=== PATIENT | female | born 1985 | race Two or more races ===

== ENCOUNTER 2017-11-25 11:26 | Inpatient (IN) | payer OTHER ==
[~2017-11-25] VITALS: Ht 170.2 cm; Wt 56.7 kg
--- NOTE | 2017-11-25 12:11 | NUR ---
BIB [facility] c/o nausea and vomiting associated with eating big meal last night. nad noted. pt aao x4, amb with steady gait. rr even and unlabored. pending md pineda. vss.
[2017-11-25 13:23] LABS: EOSINOPHILS % (AUTO) 0.1 % (0.0-6.0); HEMATOCRIT 39 % (33-45); HEMOGLOBIN 13.8 g/dL (11.5-14.8); LYMPHOCYTES # (AUTO) 0.4 /CMM (0.8-4.8); LYMPHOCYTES % (AUTO) 2.4 % (20.0-44.0); MEAN CORPUSCULAR HEMOGLOBIN 30 PG (26.0-33.0); MEAN CORPUSCULAR HGB CONC 36 g/dl (31.0-36.0); MEAN CORPUSCULAR VOLUME 83 fL (82-100); MONOCYTES # (AUTO) 0.4 /CMM (0.1-1.30); MONOCYTES % (AUTO) 2.1 % (2.0-12.0); NEUTROPHILS # (AUTO) 16.2 /CMM (1.8-8.9); NEUTROPHILS % (AUTO) 95.4 % (43.0-81.0); PLATELET COUNT (AUTO) 251 /CMM (150-450); RDW COEFFICIENT OF VARIATION 11.9 (11.5-15.0); RED BLOOD CELL COUNT(AUTO) 4.67 MIL/uL (4.0-5.2)
[2017-11-25] MEDS ORDERED: ONDANSETRON HCL/PF 4 MG/2 ML VIAL ONE (13:24)
[2017-11-25] MEDS ORDERED: MORPHINE SULFATE INJ 4 MG/ML DISP.SYRIN ONE (13:26)
[2017-11-25 13:28] LABS: APPEARANCE,URINE Clear (CLEAR); BILIRUBIN,URINE Negative (NEGATIVE); BLOOD, URINE Negative Ery/uL (NEGATIVE); COLOR,URINE Yellow (YELLOW); KETONES,URINE Trace (NEGATIVE); LEUKOCYTE ESTERASE ,URINE Negative (NEGATIVE); NITRITE, URINE Negative (NEGATIVE); PH,URINE 8.5 (5.0-8.0); PROTEIN,URINE Negative (NEGATIVE); UGLUCOSE Negative (NEGATIVE); UROBILINOGEN,URINE 0.2 EU/dL (0.2)
[2017-11-25 13:29] LABS: BACTERIA,URINE Rare /HPF (None Seen); RBC,URINE NONE SEEN /HPF (0-2); SQUAMOUS EPITHELIAL CELL,UR Few /HPF (None Seen); WBC,URINE NONE SEEN /HPF (0-3)
[2017-11-25] MEDS ORDERED: ONDANSETRON HCL/PF 4 MG/2 ML VIAL IVP ONE (13:30)
[2017-11-25] MEDS ORDERED: IV NS 0.9% 1,000 ML BAG IV ONE (13:30)
[2017-11-25] MEDS ORDERED: MORPHINE SULFATE INJ 2 MG/ML DISP.SYRIN IV ONE (13:30)
[2017-11-25 13:39] LABS: CALCIUM, SERUM 9.1 mg/dL (8.5-10.1); CREATININE 0.7 mg/dL (0.6-1.3); POTASSIUM 3.9 mmol/L (3.5-5.1)
[2017-11-25 13:45] LABS: ALBUMIN 3.2 g/dL (3.4-5.0); BILIRUBIN,DIRECT 0.1 mg/dL (0.0-0.2); BILIRUBIN,TOTAL 0.5 mg/dL (0.2-1.0); TOTAL PROTEIN, SERUM 7.5 g/dL (6.4-8.2)
[2017-11-25] MEDS ORDERED: IOHEXOL-300 100 ML VIAL IV ONE (16:13)
[2017-11-25] MEDS ORDERED: IV NS 0.9% 250 ML IV ONE (16:13)
--- NOTE | 2017-11-25 16:45 | NUR ---
PT TO CT
--- NOTE | 2017-11-25 18:45 | NUR ---
SRINI RN NOTE Received patient from ER at this time via W/C. Pt awake, A/O X4. Verbally responsive. Family at bedside. Augustina GRESHAM made aware that pt admitted to the unit, awaiting for the new orders and will endorse the admission to next shift. V/S BP109/59 T99.0 P90 R19 PA0/10 O2 sat 100% at [facility].
[2017-11-25] MEDS ORDERED: ACETAMINOPHEN 325 MG TABLET PO PRN (19:00)
[2017-11-25] MEDS ORDERED: MORPHINE SULFATE INJ 4 MG/ML DISP.SYRIN IV PRN (19:00)
[2017-11-25] MEDS ORDERED: Z GUARD REMEDY 2 OZ OINT TP PRN (19:00)
[2017-11-25] MEDS ORDERED: ZOLPIDEM TARTRATE 5 MG TABLET PO PRN (19:00)
[2017-11-25] MEDS ORDERED: MAGNESIUM HYDROXIDE 30 ML UDC PO PRN (19:00)
[2017-11-25] MEDS ORDERED: ONDANSETRON HCL/PF 4 MG/2 ML VIAL IVP PRN (19:00)
[2017-11-25] MEDS ORDERED: HYDROCODONE/APAP 5/325MG 1 EACH TABLET PO PRN (19:00)
--- NOTE | 2017-11-25 19:45 | NUR ---
MS UNDERGROUND UTILITY LOCATOR NOTES RECEIVED ON BED A/O X4,BREATHING REGULAR,NOT IN ANY FORM OF DISTRESS,CAME FOR N/V.DX,ENTERITIS.C/O ABDOMINAL PAIN 4/10 ON PAIN SCALE.SALINE LOCK LEFT AC #20 INTACT AND PATENT.SEEN AND EXAMINED BY VAELRIO RICHEY.VISITORS AT BEDSIDE.CALL LIGHT IN REACH,NEEDS ANTICIPATED.
[2017-11-25] MEDS: IV NS 0.9% 1,000 ML IV PRN (19:57)
--- NOTE | 2017-11-25 19:57 | NUR ---
MS RN NOTES STARTED ON NS 1LITER AT 75ML/HR RATE ORDERED.ON CLEAR LIQUID DIET.
[2017-11-25 20:00] VITALS: BP 98/56
--- NOTE | 2017-11-25 21:44 | NUR ---
MS RN NOTES C/O HEADACHE,TYLENOL 650MG PO GIVEN ORDERED.
--- NOTE | 2017-11-25 21:44 | NUR ---
MS RN NOTES C/O INSOMNIA,AMBIEN 5MG PO GIVEN PER PATIENT REQUEST.
[2017-11-25] MEDS ORDERED: PIPERACILLIN /TAZOBACTAM 3.375 G VIAL IV ONE (23:43)
[2017-11-25] MEDS: PIPERACILLIN /TAZOBACTAM 3.375 G in IV D5W 50 ML IV SCH (23:55)
--- NOTE | 2017-11-25 23:55 | NUR ---
MS RN NOTES STARTED ON ZOSYN 3.375 GM IVP ORDERED.
--- NOTE | 2017-11-26 01:00 | NUR ---
MS RN NOTES SOUND ASLEEP,KEPT WARM AND COMFORTABLE.
[2017-11-26] MEDS ORDERED: PIPERACILLIN /TAZOBACTAM 3.375 G VIAL IV ONE (05:30)
[2017-11-26] MEDS: PIPERACILLIN /TAZOBACTAM 3.375 G in IV D5W 50 ML IV SCH ×2 (06:47→12:37)
--- NOTE | 2017-11-26 07:05 | NUR ---
MS RN NOTES PAIN TOLERABLE.TYLENOL EFFECTIVE FOR PAIN MANAGEMENT,ON CLEAR LIQUIDS,NO N/V NOTED.IVF INFUSING WELL ON LEFT AC.CALL LIGHT IN REACH,NEEDS ATTENDED.WILL ENDORSE TO DAY NURSE FOR GERRI.
[2017-11-26 07:21] LABS: BASOPHILS % (AUTO) 0.1 % (0.0-2.0); EOSINOPHILS % (AUTO) 0.2 % (0.0-6.0); HEMATOCRIT 33 % (33-45); HEMOGLOBIN 11.4 g/dL (11.5-14.8); LYMPHOCYTES # (AUTO) 0.9 /CMM (0.8-4.8); LYMPHOCYTES % (AUTO) 8.6 % (20.0-44.0); MEAN CORPUSCULAR HEMOGLOBIN 30 PG (26.0-33.0); MEAN CORPUSCULAR HGB CONC 35 g/dl (31.0-36.0); MEAN CORPUSCULAR VOLUME 86 fL (82-100); MONOCYTES # (AUTO) 0.8 /CMM (0.1-1.30); MONOCYTES % (AUTO) 8.2 % (2.0-12.0); NEUTROPHILS # (AUTO) 8.3 /CMM (1.8-8.9); NEUTROPHILS % (AUTO) 82.9 % (43.0-81.0); PLATELET COUNT (AUTO) 208 /CMM (150-450); RDW COEFFICIENT OF VARIATION 13.3 (11.5-15.0); WHITE BLOOD COUNT (AUTO) 10.1 K/uL (4.3-11.0)
[2017-11-26 07:52] LABS: CALCIUM, SERUM 8.2 mg/dL (8.5-10.1); CREATININE 0.7 mg/dL (0.6-1.3); MAGNESIUM 1.8 mg/dL (1.8-2.4); PHOSPHORUS 3.2 mg/dL (2.5-4.9); POTASSIUM 3.7 mmol/L (3.5-5.1)
[2017-11-26 08:00] VITALS: BP 110/69
--- NOTE | 2017-11-26 08:00 | NUR ---
RN NOTES RECEIVED PATIENT IN THE BLAIR, LYING IN THE BED, PATIENT HAS NO RESPIRATORY DISTRESS, NO C/O PAIN, NO N/V AT THIS TIME. ENCOURAGED TO EXPRESS FEELINGS AND CONCERNS. CALL LIGHT WITHIN TO REACH, NEEDS ATTENDED AND ANTICIPATED, SAFETY PRECAUTION MAINTAINED ALL THE TIME.
[2017-11-26] MEDS: IV NS 0.9% 1,000 ML IV PRN (12:39)
[2017-11-26] MEDS ORDERED: CIPR-262 PO (14:24)
[2017-11-26] MEDS ORDERED: METR500T PO (14:24)
[2017-11-26 16:00] VITALS: BP 100/59
--- NOTE | 2017-11-26 16:55 | NUR ---
DISCHARGE NOTES PATIENT D/C AT THIS TIME GOING HOME. PATIENT MED COMPLIANT, V/S STABLE, NO C/O PAIN AT THIS TIME. MED RECONCILIATION AND DISCHARGE ORDER REVIEWED AND EXPLAINED TO PATIENT. PATIENT VERBALIZED UNDERSTANDING. BELONGING WITH THE PATIENT. 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 PATIENT WILL FOLLOW PRIMARY MD. ESCORTED PATIENT TO THE LOBBY FOR SAFETY.
== END 2017-11-26 17:00 | disposition home or self-care (01) | DRG 386 ==
LOC: ER 11:28 → MEDSG2 17:44
PROVIDERS: ADMIT Nurse Practitioner Acute Care; ATTEND Nurse Practitioner Acute Care
DX: K50.90 Crohn's disease, unspecified, without complications (principal); E44.1 Mild protein-calorie malnutrition; R18.8 Other ascites; D72.829 Elevated white blood cell count, unspecified
CPT/HCPCS: 36415; 74018; 80048-TC; 80061-TC; 80076-TC; 81000-TC; 83690-TC; 83735-TC; 84100-TC; 84703-TC; 85025-TC; 87081-TC; A4606; J2270; J2405; J2543; J7030; J7050; J7060; Q9967; Z7610